=== PATIENT | male | born 1975 | race Asian ===

== ENCOUNTER 2018-05-18 21:06 | Inpatient (IN) | payer BC, OTHER ==
[~2018-05-18] VITALS: Ht 172.7 cm; Wt 81.6 kg
--- NOTE | ~2018-05-18 | HC ---
[facility] [place] [address] CONSULTATION Name: LV BEJARANO Room #: 432-P [facility] IN M.R.#: [id number] Admission: 05/19/18 Attend Phys: Alfredo Powell MD Discharge: Date of : 71 Report #: [id number] THIS REPORT FOR: //name// CC: Lg Powell DATE OF SERVICE: 05/19/2018 INFECTIOUS DISEASES CONSULTATION REASON FOR CONSULTATION: Fever. HISTORY OF PRESENT ILLNESS: The patient is a 43-year-old with underlying Crohn's disease who has been on Entyvio for last 2 years. Prior to that, he was on Humira and methotrexate. While on this, he developed lymphoma. He was treated in 2014, finished his course of therapy and has been in remission. He has otherwise been doing reasonably well over the last year. He has also had a history of anal fissures. These have resolved. He presented early this morning to the Emergency Room with a 12-hour history of blood per rectum. Along with this was chills and fever. Did have some sweats. He noticed the day before to have some nausea and passed some blood per rectum. No definite mucus. No nausea or vomiting of significance. No abdominal pain. He was anorexic. He states in the past with his flares of Crohn's, he has developed fevers. Improved with tylenol only to return. Temp to 102. Sweats noted as well. REVIEW OF SYSTEMS: Notes no travel. Lives alone. Works at [employer] with no other exposures. Did eat some barbecued ribs 2 days ago. Denies any rash, adenopathy. He has had mild headache no change in mental status. No photophobia. No oral lesions or pharyngitis symptoms. No adenopathy. No cough or sputum production. Denies any shortness of breath, PND, or orthopnea. No palpitations or syncopal episodes. No back or flank pain. Mild dysuria when his fever spikes, otherwise unremarkable. He has had no blood in his urine. No testicular swelling. No arthritis symptoms. No neurologic symptoms. No thryoid or dm issues. no depression or anxiety. ALLERGIES: CONTRAST DYE, NUTS. MEDICATIONS: As noted on his MAR including gabapentin, ondansetron, budesonide, and his Entyvio that he received last Tuesday. In the Emergency Room, he was given Zosyn. PAST MEDICAL HISTORY: Crohn's disease, lymphoma, asthma, hypertension, fistula repair. SOCIAL HISTORY: Nonsmoker, no significant alcohol intake. No HIV risk factors. [facility] [address] [place] [address] CONSULTATION Name: LV BEJARANO Room #: 432-P [facility] IN M.R.#: [id number] Admission: 05/19/18 Attend Phys: Alfredo Powell MD Discharge: Date of : 71 Report #: [id number] Workup in 2013 noted no tuberculosis, hepatitis or HIV. FAMILY HISTORY: Noncontributory, as note in h and p. PHYSICAL EXAMINATION: VITAL SIGNS: Temperature is 102.7 earlier this morning with pulse 97, blood pressure 111/70. GENERAL: The patient was diaphoretic. He was alert and cooperative. Mental status normal. Mood normal. Appeared fatigued. HEENT: Mild conjunctival injection. Mouth unremarkable. Skin: unremarkable Lymph: unremarkable NECK: Supple. No thyromegaly or mass. No adenopathy, no rashes. LUNGS: Clear. HEART: Regular, without murmur. ABDOMEN: Soft, nontender, no hepatosplenomegaly or mass. bowel sounds present. PERIANAL EXAMINATION: Unremarkable. EXTREMITIES: Unremarkable. NEUROLOGIC: Nonfocal. Mood: normal LABORATORY STUDIES: Blood cultures negative so far. Electrocardiogram, sinus tachycardia, left axis deviation. Sodium 137, potassium 3.4, bicarbonate 24, creatinine 1.6. Hemoglobin 12.7, white count 6.8, platelet count 148,000; 90% neutrophils, 6% lymphs, 2% monos. Lactate 1.8. Monospot negative. Lactate initially was 3.4. Urinalysis unremarkable. Liver function test normal. Stool culture: C. difficile, PCR and cryptosporidium and Giardia antigen pending. Blood cultures pending. CT scan of the chest, abdomen and pelvis films reviewed: small granulomas in the lung, fatty infiltration of the liver, mildly prominent spleen, occasional retroperitoneal node measuring less than 1 cm. No definite active Crohn's disease or wall thickening. Mild bladder wall thickening. IMPRESSION: Acute onset of fever, chills and blood per rectum. I am suspecting flareup of his Crohn's disease, although CT scan did not show such. This would be most likely. He is not having diarrhea. Bacterial enterocolitis also a consideration. Ova and parasite seem less likely. Clostridium difficile colitis seems less likely given the fact that he has had no diarrhea. Lymphoma would also be a consideration, although unlikely given that he is having blood per rectum. Given his immunosuppression, is at risk for further dedcompensation. Will need close monitoring with follow up lab studies and gi service to evaluate for possible endoscopy. RECOMMENDATION: We will await blood and stool studies. Continue Zosyn. Unclear why he had bladder wall thickening considering his urinalysis was [facility] [address] [place] [address] CONSULTATION Name: LV BEJARANO Room #: 432-P ADM IN .R.#: [id number] Admission: 05/19/18 Attend Phys: Alfredo Powell MD Discharge: Date of : 71 Report #: [id number] unremarkable. This will need to be followed. I have discussed with GI service and the patient regarding approach to care. Also discussed with attending. <ELECTRONICALLY SIGNED> By: Tonio Hanna MD 05/22/18 [id number] [id number] Tonio Hanna MD /nt
--- NOTE | ~2018-05-18 | EKG ---
[place] [address] [facility] [employer] [place] [address] ELECTROCARDIOGRAM REPORT Name: LV BEJARANO Room #: 432-P ADM IN M.R.#: [id number] Admission: 05/19/18 Attend Phys: Alfredo Powell MD Discharge: Date of : 71 Report #: [id number] THIS REPORT FOR: //name// [facility] ED Test Date: 2018-05-18 Test Time: 21:35:00 Pat Name: LV BEJARANO Department: Room: Gender: M Food Porter: : 1975 Requested By: Hansa Montenegro Order Number: [id number] MD: Anurag Nobles Measurements Intervals [place] Rate: 142 P: 42 MD: 126 QRS: -20 QRSD: 88 T: 17 QT: 275 QTc: 423 Interpretive Statements Sinus tachycardia Borderline left axis deviation RSR' in V1 or V2, right VCD Baseline wander in lead(s) V6 No previous ECG available for comparison Electronically Signed On 05-19-2018 8:14:41 CDT by Anurag Nobles [email or web address] <ELECTRONICALLY SIGNED> By: Anurag Nobles MD, [facility] 05/19/18 0814 34 34 Anurag Nobles MD, [facility] /EPI
[~2018-05-18 21:06] MED LIST: ANUSOL-HC25 MG RECTAL; APAP500 PO; BACTRIM DS TAB1 EACH PO; BENTYL 10 MG CA10 MG PO; CIPROFLOXACIN500 M1; COLACE100 MG PO; FLAGYL500 MG; FLAGYL500 MG PO; HUMIRA40 MG/0.8 SUBQ; IMURAN 50MG TAB50 M1 PO; KEFLEX500 MG PO; LISINOPRIL5 MG PO; NEURONTIN 300300 M1 PO; NORCO 5-325 TA1 EACH; NORCO 5-325 TA1 EACH PO; ONDANSETRON ODT8 MG PO; TERBINAFINE HCL30 GM TOP; TYLENOL EX-STR500 M2 PO; TYLENOL325 MG PO; VASELINE WHITE P5 GM TOP; [UNRECOGNIZED DRUG - OTHER] PO; [UNRECOGNIZED DRUG - OTHER] PO
[2018-05-18 21:15] VITALS: BP 120/69
[2018-05-18 21:40] LABS: ABSOLUTE NEUTROPHILS 8.9 thou/uL (1.4-8.2); BASOPHILS 0.2 % (0.0-2.0); EOSINOPHILS 0.1 % (0.0-3.0); HEMOGLOBIN 14.3 gm/dL (14.0-18.0); LYMPHOCYTES 8.8 % (24.0-44.0); MCH 27.6 pg (26.0-34.0); MCHC 34.2 g/dL (28.0-37.0); MCV 80.8 fL (80.0-100.0); MONOCYTES 2.8 % (1.0-8.0); PLATELET COUNT 197 thou/uL (150-400); POLYS 88.1 % (36.0-66.0); RBC 5.19 mil/uL (4.50-6.00); RDW 15.8 % (10.5-14.5); WBC 10.1 thou/uL (4.0-11.0)
[2018-05-18 21:49] LABS: ANION GAP 14 mmol/L (7-16); BUN 15 mg/dL (7-18); CALCIUM 8.8 mg/dL (8.5-10.1); CHLORIDE 99 mmol/L (98-107); CO2 22 mmol/L (21-32); CREATININE 1.8 mg/dL (0.7-1.3); GLUCOSE 117 mg/dL (74-106); POTASSIUM 3.7 mmol/L (3.5-5.1); SODIUM 135 mmol/L (136-145)
[2018-05-18 21:57] LABS: ALBUMIN 4.1 g/dL (3.4-5.0); SGOT 49 U/L (15-37); SGPT 64 U/L (30-65); TOTAL PROTEIN 7.9 g/dL (6.4-8.2); TROPONIN-I <0.06 ng/mL (<0.06)
[2018-05-18 22:15] LABS: URINE BILIRUBIN NEGATIVE (Negative); URINE BLOOD NEGATIVE (Negative); URINE CLARITY CLEAR; URINE COLOR YELLOW; URINE GLUCOSE-RANDOM* NEGATIVE (Negative); URINE KETONES NEGATIVE (Negative); URINE LEUKOCYTES-REFLEX NEGATIVE (Negative); URINE NITRITE-REFLEX NEGATIVE (Negative); URINE PROTEIN (DIPSTICK) NEGATIVE (Negative); URINE SPECIFIC GRAVITY 1.015 (1.005-1.035); URINE UROBILINOGEN 0.2 E.U./dl (0.2-1.0)
[2018-05-19] VITALS (7 sets, daily range): BP systolic 98–111; BP diastolic 60–72
[2018-05-19 07:53] LABS: ABSOLUTE NEUTROPHILS 6.1 thou/uL (1.4-8.2); BASOPHILS 0.2 % (0.0-2.0); HEMATOCRIT 37.4 % (42.0-52.0); HEMOGLOBIN 12.7 gm/dL (14.0-18.0); LYMPHOCYTES 6.6 % (24.0-44.0); MCH 27.3 pg (26.0-34.0); MCHC 33.9 g/dL (28.0-37.0); MCV 80.4 fL (80.0-100.0); MONOCYTES 2.5 % (1.0-8.0); PLATELET COUNT 148 thou/uL (150-400); POLYS 90.7 % (36.0-66.0); RBC 4.65 mil/uL (4.50-6.00); RDW 15.7 % (10.5-14.5); WBC 6.8 thou/uL (4.0-11.0)
[2018-05-19 08:11] LABS: CALCIUM 7.1 mg/dL (8.5-10.1); CREATININE 1.6 mg/dL (0.7-1.3); POTASSIUM 3.4 mmol/L (3.5-5.1)
[2018-05-20 04:30] VITALS: BP 119/76
[2018-05-20 05:15] LABS: ALBUMIN 2.7 g/dL (3.4-5.0); CALCIUM 7.1 mg/dL (8.5-10.1); CREATININE 1.2 mg/dL (0.7-1.3); POTASSIUM 3.2 mmol/L (3.5-5.1); TOTAL BILIRUBIN 0.7 mg/dL (<0.1-1.0); TOTAL PROTEIN 5.8 g/dL (6.4-8.2)
[2018-05-20 08:00] VITALS: BP 125/81
[2018-05-20 08:21] LABS: EOSINOPHILS 0.3 % (0.0-3.0); HEMATOCRIT 37.5 % (42.0-52.0); HEMOGLOBIN 12.7 gm/dL (14.0-18.0); MCH 27.4 pg (26.0-34.0); MCHC 33.9 g/dL (28.0-37.0); MCV 80.7 fL (80.0-100.0); MONOCYTES 5.3 % (1.0-8.0); PLATELET COUNT 111 thou/uL (150-400); POLYS 72.4 % (36.0-66.0); RBC 4.65 mil/uL (4.50-6.00); RDW 15.5 % (10.5-14.5); WBC 4.2 thou/uL (4.0-11.0)
[2018-05-20 16:00] VITALS: BP 127/83
[2018-05-20 20:56] VITALS: BP 114/65
[2018-05-21 05:17] VITALS: BP 120/79
[2018-05-21 05:44] LABS: ABSOLUTE NEUTROPHILS 2.6 thou/uL (1.4-8.2); BASOPHILS 0.5 % (0.0-2.0); HEMATOCRIT 34.4 % (42.0-52.0); HEMOGLOBIN 11.9 gm/dL (14.0-18.0); LYMPHOCYTES 27.2 % (24.0-44.0); MCH 27.7 pg (26.0-34.0); MCHC 34.5 g/dL (28.0-37.0); MCV 80.3 fL (80.0-100.0); MONOCYTES 7.6 % (1.0-8.0); PLATELET COUNT 98 thou/uL (150-400); POLYS 63.7 % (36.0-66.0); RBC 4.29 mil/uL (4.50-6.00); RDW 15.5 % (10.5-14.5); WBC 4.1 thou/uL (4.0-11.0)
[2018-05-21 05:59] LABS: ALBUMIN 2.7 g/dL (3.4-5.0); CALCIUM 7.6 mg/dL (8.5-10.1); CREATININE 1.3 mg/dL (0.7-1.3); POTASSIUM 3.5 mmol/L (3.5-5.1); TOTAL BILIRUBIN 0.4 mg/dL (<0.1-1.0)
[2018-05-21 08:37] VITALS: BP 131/86
[2018-05-21 16:48] VITALS: BP 131/88
[2018-05-21 20:30] VITALS: BP 139/96
[2018-05-22 04:30] VITALS: BP 123/84
[2018-05-22 06:15] LABS: HEMATOCRIT 33.9 % (42.0-52.0); HEMOGLOBIN 11.4 gm/dL (14.0-18.0); MCH 27.3 pg (26.0-34.0); MCHC 33.6 g/dL (28.0-37.0); MCV 81.2 fL (80.0-100.0); RBC 4.17 mil/uL (4.50-6.00); RDW 15.5 % (10.5-14.5); WBC 5.1 thou/uL (4.0-11.0)
[2018-05-22 06:36] LABS: ALBUMIN 2.8 g/dL (3.4-5.0); CALCIUM 7.9 mg/dL (8.5-10.1); CREATININE 1.1 mg/dL (0.7-1.3); POTASSIUM 3.7 mmol/L (3.5-5.1); TOTAL BILIRUBIN 0.4 mg/dL (<0.1-1.0)
[2018-05-22 08:00] VITALS: BP 128/76
[2018-05-22] MEDS ORDERED: CIPRO500 MG PO (15:07)
[2018-05-22] MEDS ORDERED: ACETAMINOPHEN325 M1 PO (15:07)
[2018-05-22] MEDS ORDERED: FLAGYL500 MG PO (15:07)
[2018-05-22 15:39] VITALS: BP 128/76
== END 2018-05-22 17:38 | disposition home or self-care (01) | DRG 372 ==
LOC: ER 21:06 → EROBS 05-19 00:19 → 4E 05-19 00:19
PROVIDERS: Hospitalist; Internal Medicine Infectious Disease; Nurse Practitioner; Physician Assistant
DX: A04.9 Bacterial intestinal infection, unspecified (principal); K50.90 Crohn's disease, unspecified, without complications; N17.9 Acute kidney failure, unspecified; K92.2 Gastrointestinal hemorrhage, unspecified; J45.909 Unspecified asthma, uncomplicated; I10 Essential (primary) hypertension; R16.1 Splenomegaly, not elsewhere classified; R00.0 Tachycardia, unspecified; F17.210 Nicotine dependence, cigarettes, uncomplicated; N18.9 Chronic kidney disease, unspecified; R74.0 Nonspecific elevation of levels of transaminase and lactic acid dehydrogenase [LDH]; Z88.8 Allergy status to other drugs, medicaments and biological substances; Z91.041 Radiographic dye allergy status; Z91.018 Allergy to other foods; Z79.899 Other long term (current) drug therapy
CPT/HCPCS: 10084